=== PATIENT | female | born 1995 | race Two or more races ===

== ENCOUNTER 2023-08-10 23:36 | Inpatient (IN) | payer OTHER ==
[2023-08-11] MEDS ORDERED: Lidocaine 1% 10 ML MDV ONE
[2023-08-11] MEDS ORDERED: Nalbuphine HCl 10 MG/ 1ML Amp IVPUSH PRN (00:03)
[2023-08-11] MEDS ORDERED: Calcium Carbonate 500 MG Tab.Chew PO PRN (00:03)
[2023-08-11] MEDS ORDERED: Lidocaine 1% 50 ML MDV INJECT PRN (00:03)
[2023-08-11] MEDS ORDERED: Acetaminophen 325 MG Tab PO PRN (00:03)
[2023-08-11] MEDS ORDERED: Ondansetron 4 MG/2 ML SDV IVPUSH PRN (00:03)
[2023-08-11] MEDS ORDERED: Oxytocin/Lactated Ringers 30 UNIT/500 ML BAG IV SCH ×2 (00:15)
[2023-08-11 00:24] LABS: BASOPHILS PERCENT AUTO 0.3 % (0.0-1.0); EOSINOPHILS PERCENT AUTO 0.4 % (0.0-6.0); HEMATOCRIT 33.3 % (37.0-47.0); HEMOGLOBIN 11.6 gm/dl (12.0-16.0); IMMATURE GRAN ABSOLUTE AUTO 0.08 K/mm3 (0.00-0.05); IMMATURE GRAN PERCENT AUTO 1.1 % (0.0-0.4); LYMPHOCYTES ABSOLUTE AUTO 1.9 K/mm3 (1.0-4.8); LYMPHOCYTES PERCENT AUTO 24.5 % (24.0-44.0); MEAN CORPUSCULAR HGB CONC 34.8 g/dl (32.0-36.0); MEAN CORPUSCULAR VOLUME 91.7 fl (83.0-99.0); MEAN PLATELET VOLUME 11.4 fl (9.4-12.3); MONOCYTES ABSOLUTE AUTO 0.6 K/mm3 (0.0-0.8); MONOCYTES PERCENT AUTO 8.3 % (0.0-8.0); NEUTROPHILS PERCENT AUTO 65.4 % (41.0-71.0); PLATELET COUNT,PLT 117 K/mm3 (150-400); RED BLOOD CELL COUNT 3.63 M/mm3 (4.10-5.30); WHITE BLOOD CELL COUNT,WBC 7.56 K/mm3 (3.9-11.3)
[2023-08-11] MEDS ORDERED: ePHEDrine 50 MG/ML SDV IVPUSH PRN (00:41)
[2023-08-11] MEDS ORDERED: diphenhydrAMINE 50 MG/ML SDV IVPUSH PRN (00:41)
[2023-08-11] MEDS ORDERED: Bupivacaine/fentaNYL/NS 100 ML Bag EPIDUR PRN (00:41)
[2023-08-11] MEDS ORDERED: fentaNYL 100 MCG/2 ML SDV EPIDUR PRN (00:41)
[2023-08-11] MEDS: Lactated Ringers 1,000 ML IV SCH ×3 (00:46→02:42)
[2023-08-11] MEDS ORDERED: Witch Hazel Medicated Pads 40/Jar TOP PRN (04:47)
[2023-08-11] MEDS ORDERED: Benzocaine/Menthol 20%-0.5% Spray 78 GM Cannister TOP PRN (04:47)
[2023-08-11] MEDS: Ibuprofen 600 MG Tab PO PRN ×2 (09:58→20:02)
[2023-08-11] MEDS: Acetaminophen 325 MG Tab PO PRN (12:13)
[2023-08-12] MEDS: Acetaminophen 325 MG Tab PO PRN (00:55)
== END 2023-08-12 14:20 | disposition home or self-care (01) | DRG 807 ==
LOC: JD.OBCHECK 23:36 → JD.OB 23:41 → JD.OBCHECK 08-11 00:02 → JD.OB 08-11 00:03 → OBSVTOIN 08-11 03:43 → JD.OB 08-11 03:44
PROVIDERS: ADMIT Obstetrics & Gynecology; ATTEND Obstetrics & Gynecology
PROC: 10E0XZZ Delivery of Products of Conception, External Approach (ICD-10-PCS; principal; 2023-08-11)
PROC: 10907ZC Drainage of Amniotic Fluid, Therapeutic from Products of Conception, Via Natural or Artificial Opening (ICD-10-PCS; 2023-08-11)
PROC: 3E0R3BZ Introduction of Anesthetic Agent into Spinal Canal, Percutaneous Approach (ICD-10-PCS; 2023-08-11)
PROC: 00HU33Z Insertion of Infusion Device into Spinal Canal, Percutaneous Approach (ICD-10-PCS; 2023-08-11)
DX: O80 Encounter for full-term uncomplicated delivery (principal); Z37.0 Single live birth; Z3A.40 40 weeks gestation of pregnancy
CPT/HCPCS: 36415; 51702; 59025; 59409; 85025; 86592; 86850; 86870; 86900; 86901; A9270-GY; J3010; J3490; J7120; J7999